=== PATIENT | male | born 1980 ===

== ENCOUNTER → 2024-12-18 16:53 | Outpatient (REF) | payer MEDICARE, SELFPAY ==
[2024-12-21 17:06] LABS: HPV, High Risk Not Detected; HPV, High Risk Source Anal
== END ==
LOC: CLAB 16:53
PROVIDERS: ATTENDING PHYSICIAN Surgery
DX: Z86.19 Personal history of other infectious and parasitic diseases (principal)
CPT/HCPCS: 87624; 88112